=== PATIENT | female | born 1955 ===

== ENCOUNTER 2022-03-08 12:15 | Inpatient (IN) | payer OTHER ==
[~2022-03-08] VITALS: Ht 167.6 cm; Wt 84.8 kg
[2022-03-08] MEDS ORDERED: [UNRECOGNIZED DRUG - OTHER] PO (13:50)
[2022-03-08] MEDS ORDERED: BUSPIR PO (13:51)
[2022-03-08] MEDS ORDERED: [UNRECOGNIZED DRUG - OTHER] PO (13:51)
[2022-03-08] MEDS ORDERED: KAPVAY0.1 MG PO (13:52)
[2022-03-08] MEDS ORDERED: ATORVASTATIN CA40 MG PO (13:52)
[2022-03-08] MEDS ORDERED: ASA81 MG PO (13:53)
[2022-03-08] MEDS ORDERED: ZESTRIL40 M1 PO (13:54)
[2022-03-08] MEDS ORDERED: LOPID PO (13:54)
[2022-03-08] MEDS ORDERED: HYDROCHLOROTHIA25 MG PO (13:54)
[2022-03-08] MEDS ORDERED: RESTORIL30 M1 PO (13:55)
[2022-03-08] MEDS ORDERED: WELLBUTRIN XL300 MG PO (13:55)
[2022-03-08] MEDS ORDERED: VITAMIN D PO (13:56)
[2022-03-08] MEDS ORDERED: [UNRECOGNIZED DRUG - OTHER] PO (13:57)
[2022-03-10] MEDS ORDERED: GEMFIBROZIL600 MG (11:15)
[2022-03-10] MEDS ORDERED: PANTOPRAZOLE SO40 MG (11:15)
[2022-03-10] MEDS ORDERED: METOPROLOL TART50 MG (11:15)
[2022-03-10] MEDS ORDERED: SERTRALINE HCL50 MG (11:15)
[2022-03-10] MEDS ORDERED: OMEPRAZOLE40 MG (11:15)
[2022-03-10] MEDS ORDERED: SPIRONOLACTONE25 MG (11:15)
[2022-03-10] MEDS ORDERED: FAMOTIDINE40 MG (11:15)
[2022-03-10] MEDS ORDERED: BUSPIRONE HCL10 MG (11:15)
[2022-03-10] MEDS ORDERED: VITAMIN D310 MC4 (11:16)
[2022-03-10] MEDS ORDERED: GABAPENTIN100 M2 (11:17)
[2022-03-10] MEDS ORDERED: BUTALB-ACETAMI1 EAC2 (11:17)
[2022-03-13] MEDS ORDERED: PERCOCET 5-3251 EACH PO (15:00)
== END 2022-03-13 17:21 | disposition home or self-care (01) | DRG 331 ==
LOC: SURH 03-10 09:34 → O/R 03-10 09:34 → SURG 03-10 10:15 → SURH 03-10 16:35
PROVIDERS: ADMIT Surgery; ATTEND Surgery
PROC: 0DBP4ZZ Excision of Rectum, Percutaneous Endoscopic Approach (ICD-10-PCS; 2022-03-10)
PROC: 0DJD8ZZ Inspection of Lower Intestinal Tract, Via Natural or Artificial Opening Endoscopic (ICD-10-PCS; 2022-03-10)
PROC: 4A12X4Z Monitoring of Cardiac Electrical Activity, External Approach (ICD-10-PCS; 2022-03-10)
PROC: 3E0F7SF Introduction of Other Gas into Respiratory Tract, Via Natural or Artificial Opening (ICD-10-PCS; 2022-03-10)
PROC: 0DTN4ZZ Resection of Sigmoid Colon, Percutaneous Endoscopic Approach (ICD-10-PCS; principal; 2022-03-10 10:15)
DX: K57.20 Diverticulitis of large intestine with perforation and abscess without bleeding (principal); K66.0 Peritoneal adhesions (postprocedural) (postinfection); R10.32 Left lower quadrant pain; R19.4 Change in bowel habit